=== PATIENT | male | born 1945 | race Caucasian/White ===

== ENCOUNTER → 2017-08-08 | Outpatient (CLI) | payer OTHER, MEDICARE ==
[~2017-08-08] MED LIST: ALPHA LIPOIC A200 M1 PO; ASA5UEC PO; CENTRUM SILVER1 EAC2 PO; COLACE100 MG PO; DAYPRO600 MG PO; FOLIC ACID 40400 MC1 PO; GALZIN25 MG PO; GLUCOSAMINE HC500 MG; GLYBURID-METFO1 EACH; GLYBURIDE 2.52.5 M1 PO; HYDROCHLOROTH12.5 M1 PO; IRON 21/7 TABL1 EACH PO; LIPITOR10 MG PO; MAGNESIUM250 M1 PO; MEDROL DOSPAK21 TAB PO; MEDROLDOSEPACK PO; METFORMIN HCL500 MG PO; NEURONTIN 300300 M1 PO; PAXIL10 MG; PERCOCET 10-321 EACH PO; PERCOCET 5-3251 EACH PO; PHILLIPS' COLO1 EACH PO; PRINIVIL20 MG PO; ROBAXIN 750 MG750 M1 PO; SAW PALMETTO160 MG PO; SELENIUM200 MC3 PO; TEMOVATE30 GM; TRAMADOL 50 MG50 MG PO; TRIPLE FLEX CA1 EACH PO; ULTRAM50 MG; VITAMIN D32000 UNI1 PO; VITAMIN E400 UNIT PO
--- NOTE | ~2017-08-08 | EXE ---
[facility] [place] [address] STRESS ECHOCARDIOGRAM Name: CHRISTINA MEADE Room #: REG [facility]#: [id number] Admission: 08/08/17 Attend Phys: Randal Calderon MD Discharge: Date of : 41 Date of Service: 08/08/17 1026 Report #: [id number] THIS REPORT FOR: //name// APPROVED REPORT Study performed: 08/08/2017 09:21:25 Exam: Stress Echocardiogram Indication: CAD Patient Location: Out-Patient Stress Nurse: Kathie Danielle RN, Henny Gale RN Ht: 5 ft 11 in HR: 77 bpm BP: 127/75 mmHg Medical History Allergies: No known drug allergies Cardiac Risk Factors: HTN, Hyperlipidemia, DM Procedure The patient underwent an Exercise Stress Test using the Segundo Protocol. Blood pressure, heart rate, and EKG were monitored. An Echocardiogram was performed by bicycle repair technician in four stages in quad fashion. At peak stress, four selected images were obtained and placed side by side with resting images for comparison. Stress Test Details Stress Test: Exercise stress testing was performed using a Segundo protocol. HR Resting HR: 77 bpm Max Heart Rate (APMHR): 146 bpm Max HR Achieved: 141 bpm Target HR (85% APMHR): 124 bpm % of APMHR: 96 Recovery HR: 92 bpm HR response to stress: Normal HR response to stress BP Resting BP: 127/75 mmHg Max BP: 180/80 mmHg Recovery BP: 123/78 mmHg ECG Resting ECG: Sinus Rhythm, nonspecific ST-T abnormalities Stress ECG: Sinus Rhythm, nonspecific ST-T abnormalities [facility] [address] [place] [address] STRESS ECHOCARDIOGRAM Name: MEADE,CHRISTINA H Room #: REG [facility]#: [id number] Admission: 08/08/17 Attend Phys: Randal Calderon MD Discharge: Date of : 41 Date of Service: 08/08/17 1026 Report #: [id number] ST Change: Non-ischemic Maximum ST Deviation: 0 mm Clinical Reason for Termination: severe fatigue, trouble walking on treadmill Stress Symptoms: Leg Fatigue, Dyspnea Exercise duration: 6 min 20 sec Highest Stage Achieved: Stage 3: 3.4 mph at 14% grade. Exercise capacity: 7.90 METs Pre-Stress Echo The resting Echocardiogram showed low normal left ventricular contractility with an estimated Ejection Fraction of about 50%. Trace to mild MR, trace TR. Post-Stress Echo The stress Echocardiogram showed normal left ventricular contractility with an estimated Ejection Fraction of about 60%. Normal augmentation of wall motion in all segments on post stress images. Clinical No clinical or ECG evidence for ischemia. Conclusion Clinical Response: Non-ischemic Exercise Capacity: Average Stress ECG Response: Non-ischemic Stress Echo Images: Non-ischemic The left ventricle is normal in size and wall thickness in both the rest and stress images. Other Information Study Quality: Good <Conclusion> The left ventricle is normal in size and wall thickness in both the rest and stress images. <ELECTRONICALLY SIGNED> By: Randal Calderon MD 08/08/17 1026 1026 1026 Randal Calderon MD /INF
== END ==
LOC: CV 09:11
DX: I25.10 Atherosclerotic heart disease of native coronary artery without angina pectoris (principal); I10 Essential (primary) hypertension; E78.5 Hyperlipidemia, unspecified; E11.9 Type 2 diabetes mellitus without complications

== ENCOUNTER → 2018-08-08 | Outpatient (CLI) | payer OTHER, MEDICARE ==
--- NOTE | 2018-08-11 09:42 | 2DMMODE ---
[facility] [place] [address] 2 D/M-MODE ECHOCARDIOGRAM Name: CHRISTINA MEADE Room #: REG [facility]#: [id number] ������������� Admission: 08/08/18 ������������� Attend Phys: Randal Calderon MD Discharge: ��� ������������� ��� Date of : 41 Date of Service: 08/11/18 0942 �� Report #: [id number] �������� ��������������������������������������������[id number] THIS REPORT FOR: //name// APPROVED REPORT Study performed: 08/08/2018 10:25:30 EXAM: Comprehensive 2D, Doppler, and color-flow Echocardiogram Patient Location: Out-Patient Room #: Echo lab 2 Status: routine BSA: 2.06 HR: 82 bpm BP: 136/84 mmHg Rhythm: NSR Other Information Study Quality: Good Indications CAD 2D Dimensions RVDd: 37.30 mm IVSd: 10.55 (7-11mm) LVOT Diam: 22.52 (18-24mm) LVDd: 52.12 mm PWd: 9.89 (7-11mm) Ascending Ao: 27.85 (22-36mm) LVDs: 36.27 (25-40mm) Aortic Root: 33.09 mm Volumes Left Atrial Volume (Systole) Single Plane 4CH: 27.27 mL Single Plane 2CH: 53.01 mL LA ESV Index: 21.00 mL/m2 Aortic Valve AoV Peak Maximino.: 1.34 m/s AO Peak Gr.: 7.15 mmHg LVOT Max P.61 mmHg LVOT Max V: 0.95 m/s DAVID Vmax: 2.83 cm2 Mitral Valve E/A Ratio: 0.8 MV Decel. Time: 183.57 ms MV E Max Maximino.: 0.82 m/s [facility] [address] [place] [address] 2 D/M-MODE ECHOCARDIOGRAM Name: CHRISTINA MEADE Room #: [facility]#: [id number] ������������� Admission: 08/08/18 ������������� Attend Phys: Randal Calderon MD Discharge: ��� ������������� ��� Date of : 41 Date of Service: 08/11/18 0942 �� Report #: [id number] �������� ��������������������������������������������[id number] MV A Maximino.: 0.99 m/s MV PHT: 53.23 ms IVRT: 138.41 ms Pulmonary Valve PV Peak Maximino.: 1.31 m/s PV Peak Gr.: 6.84 mmHg Pulmonary Vein P Vein S: 0.46 m/s P Vein A: 0.32 m/s P Vein D: 0.35 m/s P Vein A Dur.: 129.2 msec P Vein S/D Ratio: 1.31 Left Ventricle The left ventricle is normal size. There is normal LV segmental wall motion. There is normal left ventricular wall thickness. Left ventricular systolic function is low-normal. LVEF is 50%. Grade I - abnormal relaxation pattern. Right Ventricle The right ventricle is normal size. The right ventricular systolic function is normal. Atria The left atrium size is normal. The right atrium size is normal. Aortic Valve The aortic valve is normal in structure. No aortic regurgitation is present. There is no aortic valvular stenosis. Mitral Valve The mitral valve is normal in structure. Trace mitral regurgitation. No evidence of mitral valve stenosis. Tricuspid Valve The tricuspid valve is normal in structure. There is no tricuspid valve regurgitation noted. Pulmonic Valve The pulmonary valve is normal in structure. There is no pulmonic valvular regurgitation. Great Vessels The aortic root is normal in size. IVC is not well visualized. [facility] [address] [place] [address] 2 D/M-MODE ECHOCARDIOGRAM Name: CHRISTINA MEADE Room #: [facility]#: [id number] ������������� Admission: 08/08/18 ������������� Attend Phys: Randal Calderon MD Discharge: ��� ������������� ��� Date of : 41 Date of Service: 08/11/18 0942 �� Report #: [id number] �������� ��������������������������������������������[id number] Pericardium There is no pericardial effusion. <Conclusion> The left ventricle is normal size. There is normal left ventricular wall thickness. Left ventricular systolic function is low-normal. Grade I - abnormal relaxation pattern. The right ventricle is normal size. The left atrium size is normal. The aortic valve is normal in structure. Trace mitral regurgitation. There is no tricuspid valve regurgitation noted. ��������������������������������������������� <ELECTRONICALLY SIGNED> ���������������������������������������� By: Randal Calderon MD ��������������������������������������������� 08/11/18941 1 1 Randal Calderon MD /INF
== END ==
LOC: CV 10:11
DX: I25.10 Atherosclerotic heart disease of native coronary artery without angina pectoris (principal)